=== PATIENT | male | born 1975 | race Two or more races ===

== ENCOUNTER 2024-10-30 06:40 | Day surgery (SDC) | payer OTHER, SELFPAY ==
[2024-10-29 10:11] VITALS: BMI 32.8
[2024-10-30] VITALS (9 sets, daily range): BP systolic 122–148; BP diastolic 82–96; PULSE 85–101; RESP 12–19; TEMP 36.4–36.8; O2SAT 95–100; BMI 32.7
[2024-10-30] MEDS: SODIUM CHLORIDE 0.9% 500 ML 500 ML 20 ML IV (07:27)
[2024-10-30] MEDS: fentaNYL CIT INJ 50 mCg/ML AMP 2ML (ASD USE ONLY) IVP (07:33)
[2024-10-30] MEDS: MIDAZOLAM INJ 1 MG/ML VIAL 2 ML (ASD USE ONLY) 2 MG IVP (07:33)
--- NOTE | 2024-10-30 08:24 | SUR.PHASEII ---
0744 patient into recovery with no acute distress noted, v/s stable, no complaints of pain or nausea at this time, patient actively passing flatus, report received from bayron rn. 0755 patient repositions self for comfort, patient denies pain and nausea, patient continues to pass flatus. 0800 patient drinking water with no difficulty. 0815 patient ambulates to bathroom with no assistance needed, with a steady gait. 0820 patient in wheelchair awaiting daughter's arrival.
--- NOTE | 2024-10-30 08:42 | SUR.PHASEII ---
0830 D/C INSTRUCTIONS GIVEN TO PATIENT'S DAUGHTER BI. NO FINDINGS WERE REPORTED TO DAUGHTER PER PATIENT'S REQUEST. 4952 PATIENT D/C HOME.
== END 2024-10-30 08:35 | disposition home or self-care (01) ==
PROVIDERS: PCP Nurse Practitioner Family; Referring Provider Surgery; Visit Provider Surgery
PROC: 0DBE8ZX Excision of Large Intestine, Via Natural or Artificial Opening Endoscopic, Diagnostic (ICD-10-PCS; CPT 45380; principal; 2024-10-30 07:30)
DX: Z12.11 Encounter for screening for malignant neoplasm of colon (principal); K64.0 First degree hemorrhoids; K57.30 Diverticulosis of large intestine without perforation or abscess without bleeding
CPT/HCPCS: 45378; J1200; J2250; J3010; J7999